=== PATIENT | female | born 1990 | race Two or more races ===

== ENCOUNTER 2019-08-28 20:42 | Emergency (ER) | payer SELFPAY ==
[~2019-08-28] VITALS: Ht 165.1 cm; Wt 63.5 kg
[~2019-08-28 20:42] MED LIST: UNOBMED
[2019-08-28 21:08] VITALS: BP 125/75
[2019-08-28 21:28] LABS: BASOPHILS % (AUTO) 0.9 % (0.0-2.0); EOSINOPHILS % (AUTO) 1.2 % (0.0-3.0); HEMATOCRIT 33.4 % (37.0-47.0); HEMOGLOBIN 9.6 G/DL (12.0-16.0); LYMPHOCYTES % (AUTO) 21.2 % (20.0-45.0); MEAN CORPUSCULAR VOLUME 66 FL (80-99); MONOCYTES % (AUTO) 7.6 % (1.0-10.0); PLATELET COUNT 349 K/UL (150-450); RED BLOOD COUNT 5.05 M/UL (4.20-5.40); RED CELL DISTRIBUTION WIDTH 12.9 % (11.6-14.8); WHITE BLOOD COUNT 7.7 K/UL (4.8-10.8)
[2019-08-28 21:30] LABS: ANION GAP 6 mmol/L (5-15); BLOOD UREA NITROGEN 12 mg/dL (7-18); CALCIUM 8.5 MG/DL (8.5-10.1); CARBON DIOXIDE 30 MMOL/L (21-32); CHLORIDE 100 MMOL/L (98-107); CREATININE 0.6 MG/DL (0.55-1.30); POTASSIUM 3.8 MMOL/L (3.5-5.1); SODIUM 136 MMOL/L (136-145)
[2019-08-28 21:34] LABS: ALANINE AMINOTRANSFERASE 33 U/L (12-78); ALBUMIN 3.8 G/DL (3.4-5.0); ALBUMIN/GLOBULIN RATIO 0.8 (1.0-2.7); ALKALINE PHOSPHATASE 80 U/L (46-116); ASPARTATE AMINO TRANSFERASE 30 U/L (15-37); BILIRUBIN,TOTAL 0.4 MG/DL (0.2-1.0)
[2019-08-28 21:56] LABS: APPEARANCE,URINE CLEAR; BILIRUBIN, URINE NEGATIVE (NEGATIVE); COLOR,URINE PALE YELLOW; GLUCOSE, URINE (UA) NEGATIVE (NEGATIVE); KETONES,URINE NEGATIVE (NEGATIVE); LEUKOCYTE ESTERASE ,URINE NEGATIVE (NEGATIVE); NITRITE,URINE NEGATIVE (NEGATIVE); PH,URINE 7 (4.5-8.0); PROTEIN,URINE NEGATIVE (NEGATIVE); UROBILINOGEN,URINE NORMAL MG/DL (0.0-1.0)
--- NOTE | 2019-08-28 22:07 | Emergency Room Report ---
History of Present Illness General Chief Complaint: Substance Abuse Source: Patient, EMS Present Illness HPI Is a 29-year-old female brought in by EMS with chief complaint of overdose. According to EMS, friend said that she is broke up with her boyfriend and she is feeling depressed. She told me that she wanted to sleep so she took some clonazepam. Unknown amount. Unknown time of ingestion. Patient was sedated. No nausea no vomiting. Please also came by and did not put her on a 5150. Allergies: Coded Allergies: UNABLE TO ASSESS (Unverified , 08/28/19) Patient History Past Medical History: see triage record, old chart reviewed Past Surgical History: none Family History: unable to obtain Now: No Immunizations: other Reviewed Nursing Documentation: PMH: Agreed; PSxH: Agreed Nursing Documentation-PMH Past Medical History: No History, Except For Review of Systems ENT: Denies: sore throat Cardiovascular: Denies: chest pain, palpitations Gastrointestinal/Abdominal: Denies: nausea, vomiting, diarrhea Musculoskeletal: Denies: back problems Skin: Denies: rash Neurological: Denies: GERMAIN, seizures All Other Systems: negative except mentioned in HPI Physical Exam Vital Signs Date Time Temp Pulse Resp B/P (MAP) Pulse Ox O2 Delivery O2 Flow Rate FiO2 08/28/19 20:32 97.5 84 24 125/75 (92) 100 Room Air Vitals normal Sp02 EP Interpretation: reviewed, normal General Appearance: alert/responsive, no apparent distress, non-toxic Head: normocephalic, atraumatic Eyes: PERRL, EOMI ENT: oropharynx normal Neck: supple/symm/no masses Respiratory: effort normal, no rhonchi, no wheezing Cardiovascular: no murmur, gallop, rub Gastrointestinal: non-tender, no mass, non-distended, no rebound/guarding, normal bowel sounds Musculoskeletal: gait & station normal Neurologic: oriented x3, sensory intact, motor strength/tone normal Psychiatric: other - Depressed affect Skin: no rash, normal palpation Medical Decision Making Diagnostic Impression: Primary Impression: Benzodiazepine overdose Qualified Codes: T42.4X1A - Poisoning by benzodiazepines, accidental ( unintentional), initial encounter Additional Impression: Methamphetamine abuse ER Course She presents with substance abuse and overdose on benzodiazepine. Was sleepy but able to awaken with hospital administrative assistant walk to the bathroom. She denies suicidal thoughts. She admits to using methamphetamine also. No criteria for 5150. Will discharge home patient is clinically stable. This patient is a chronic risk of self injury due to poor impulse control, limited coping skills, and judgment intermittently impaired by intoxication. I believe that the available clinical evidence to suggest that these characteristics derived primarily from personality disorder and are likely very stable over time. Hospitalization would likely attenuate risk of self-harm only during retirement period, without lasting risk reduction. Serious self-harm , while possible, would likely be inadvertent, and because of impulsivity, and foreseeable. For these reasons, I do not believe hospitalization would provide meaningful reduction in risk of self-harm. Last Vital Signs Date Time Temp Pulse Resp B/P (MAP) Pulse Ox O2 Delivery O2 Flow Rate FiO2 08/28/19 21:08 84 24 Room Air 08/28/19 21:08 97.5 125/75 100 Status: improved Disposition: HOME, SELF-CARE Condition: Stable Additional Instructions: Abstain from drugs and alcohol. Follow-up with your doctor in 7 days. Follow- up with rehab. Return if worse. Brad Bearden MD Aug 28, 2019 22:07
[2019-08-28 23:47] VITALS: BP 133/71
[2019-08-29 01:00] VITALS: BP 122/71
[2019-08-29 03:19] VITALS: BP 119/72
[2019-08-29 05:00] VITALS: BP 124/78
[2019-08-29 05:22] VITALS: BP 124/78
== END 2019-08-29 05:24 | disposition home or self-care (01) ==
LOC: EDBD 20:42 → EMR 23:59
DX: T42.4X1A Poisoning by benzodiazepines, accidental (unintentional), initial encounter (principal); F15.10 Other stimulant abuse, uncomplicated; Y92.9 Unspecified place or not applicable
CPT/HCPCS: 36415; 80053; 80307; 81003; 81025; 85025; 96360; 99284; G0480